=== PATIENT | female | born 1970 | race Caucasian/White ===

== ENCOUNTER → 2020-08-26 15:57 | Outpatient (CLI) | payer BC, SELFPAY ==
--- NOTE | ~2020-08-26 | MM_ITS ---
EXAMINATION: MM screening [facility] BI w graciela HISTORY: Screening mammogram TECHNIQUE: Craniocaudal and mediolateral oblique 3-D tomosynthesis images were obtained and synthetic 2-D images were generated. CAD analysis was submitted and interpreted. COMPARISON: 05/23/2019, 04/19/2018, 12/22/2016 BREAST PARENCHYMAL COMPOSITION: The breasts are almost entirely fatty. FINDINGS: There is no evidence of suspicious mass, calcification, or architectural distortion to sugg est malignancy in either breast. There has been no suspicious interval change. IMPRESSION: 1. No mammographic evidence of malignancy. 2. Recommend routine screening mammography in one year. BI-RADS Category 1: Negative Reviewed, dictated and finalized at location A. LE CUTTER
== END ==
PROVIDERS: PCP Family Medicine; Visit Provider Obstetrics & Gynecology
DX: Z12.31 Encounter for screening mammogram for malignant neoplasm of breast (principal)
CPT/HCPCS: 77063; 77067

== ENCOUNTER → 2020-09-02 18:04 | Outpatient (CLI) | payer BC, SELFPAY ==
--- NOTE | ~2020-09-02 | DEXA_ITS ---
Bone Density Report Name: Sarah Mehta Age: 49 Sex: Female Ethnicity: White Date of : 1970 Indication: postmenopausal; screening for osteoporosis; height loss; asthma or emphysema; rheumatoid arthritis; Referring Provider: YOHAN HARTLEY Study: Bone densitometry was performed. Exam Date: September 02, 2020 Accession number: [id number] Bone Density: Region BMD T-score Z-score Classification AP Spine (L1, L2, L3) 1.136 1.1 1.8 Normal Femoral Neck (Left) 0.977 1.2 1.9 Normal Total Hip (Left) 1.091 1.2 1.7 Normal Femoral Neck (Right) 0.847 0.0 0.8 Normal Total Hip (Right) 1.038 0.8 1.3 Normal Total Hip Mean 1.065 1.0 1.5 Normal World Health Organization criteria for BMD impression classify patients as: Normal (T-score at or above -1.0), Osteopenia (T-score between -1.0 and -2.5), or Osteoporosis (T-score at or below -2.5). 10-year Fracture Risk: FRAX not reported because: All T-scores for Spine Total, Hip Total, Femoral Neck at or above -1.0 Clinical Information Provided by Patient: Has rheumatoid arthritis Has used the following medications: Vitamin D, Calcium Has the following medical conditions: Asthma or Emphysema Patient maximum height was 66.5 Menopause Age: 48 No regular weight bearing exercise Drinks caffeinated beverages Onset of menses at age 9 Number of children 1 Impression: The patient has normal bone mass. Discussion: BONE DENSITY IS ABOVE THE MINIMUM DESIRABLE LEVEL AT ALL SKELETAL SITES TESTED. This patient?s bone mineral density is above the minimum desirable level (T-score -1.0 or better) at all sites measured. The patient should follow a healthful lifestyle (good nutrition with adequate calcium and vitamin D, and appropriate weight-bearing exercise). Follow-Up: Consider repeating this study in 5 years or sooner if there is some new clinical indication. Reported by: CLAU on 09/02/2020 7:21:00 PM. Reviewed, dictated and finalized at location [facility]
== END ==
PROVIDERS: Visit Provider Obstetrics & Gynecology
DX: Z78.0 Asymptomatic menopausal state (principal)
CPT/HCPCS: 77080

== ENCOUNTER → 2021-12-01 15:25 | Outpatient (CLI) | payer BC, SELFPAY ==
--- NOTE | ~2021-12-01 | MM_ITS ---
EXAMINATION: MM screening luzma BI w graciela HISTORY: Screening mammogram TECHNIQUE: Craniocaudal and mediolateral oblique 3-D tomosynthesis images were obtained and synthetic 2-D images were generated. CAD analysis was submitted and interpreted. COMPARISON: August 26, 2020, May 23, 2019, April 19, 2018 bilateral screening mammogram exam inations BREAST PARENCHYMAL COMPOSITION: There are scattered areas of fibroglandular density. FINDINGS: There is no evidence of suspicious mass, calcification, or architectural distortion to sugg est malignancy in either breast. There has been no suspicious interval change. IMPRESSION: 1. No mammographic evidence of malignancy. 2. Recommend routine screening mammography in one year. BI-RADS Category 1: Negative Reviewed, dictated and finalized at location A.
== END ==
PROVIDERS: PCP Family Medicine; Visit Provider Obstetrics & Gynecology
DX: Z12.31 Encounter for screening mammogram for malignant neoplasm of breast (principal)
CPT/HCPCS: 77063; 77067

== ENCOUNTER 2022-07-05 14:13 | Emergency (ER) | payer BC, SELFPAY ==
[2022-07-05 14:19] VITALS: BP 151/93; PULSE 50; RESP 15; TEMP 36.5; O2SAT 100
--- NOTE | 2022-07-05 14:19 | ECG_ITS ---
Measurements Intervals [place] Rate: 43 P: 53 NV: 147 QRS: 25 QRSD: 152 T: 27 QT: 500 QTc: 427 Interpretive Statements SINUS BRADYCARDIA POSSIBLE LEFT ATRIAL ENLARGEMENT [-0.1mV P WAVE IN V1/V2] RIGHT BUNDLE BRANCH BLOCK [120+ ms QRS DURATION, UPRIGHT V1, 40+ ms S IN I/aVL/V4/V5/V6] NO PREVIOUS ECG AVAILABLE FOR COMPARISON Electronically Signed On 07-05-2022 15:06:50 [employer] by Elizabeth Enriquez M.D.
--- NOTE | 2022-07-05 16:05 | ED.GENADULT ---
HPI - General Adult General Chief complaint: Recheck/Abnormal Lab/Rx Stated complaint: HTN Time Seen by Provider: 07/05/22 15:42 History of Present Illness HPI narrative: This is a 51-year-old female with history of hypertension presenting ED for elevated blood pressure. Patient has been adjusting her blood pressure medications with her primary care physician over the last several weeks. She is on Bystolic 10 mg once daily and lisinopril 20 mg once daily. She said that she felt funny although she could not say what exactly she was feeling and took her blood pressure which was elevated over 200. She called her primary care physician who had her come into the the office and her blood pressure was found to be elevated over 200. She then came to the emergency department for evaluation. Here her blood pressure is 151/93. She takes her blood pressure medications at night before she goes to bed. Patient is asymptomatic. She denies chest pain, difficulty breathing, headache, numbness tingling weakness to any extremity, lower extremity edema, fatigue weakness or any other complaints this time. Related Data Home Medications Medication Instructions Recorded Confirmed azelastine 205.5 mcg (0.15 %) 2 spray intranasal DAILY 05/28/19 07/05/22 nasal spray leflunomide 10 mg tablet 10 mg PO DAILY 05/28/19 07/05/22 modafinil 200 mg tablet (Provigil) 400 mg PO QAM 05/28/19 07/05/22 adalimumab 40 mg/0.4 mL See Rx Instructions subcut .COMPLEX 07/14/20 07/05/22 subcutaneous pen kit (Humira(CF) Pen) omega-3 fatty acids 1,000 mg 1,000 mg PO DAILY 07/14/20 07/05/22 capsule (Fish Oil Concentrate) aspirin 81 mg tablet,delayed 81 mg PO DAILY 10/05/20 07/05/22 release multivitamin 1 tablet PO DAILY 10/05/20 07/05/22 cyanocobalamin (vitamin B-12) 1,000 mcg PO DAILY 06/13/22 07/05/22 1,000 mcg tablet ferrous sulfate 324 mg (65 mg 324 mg PO . every other day 06/13/22 07/05/22 iron) tablet,delayed release Allergies Allergy/AdvReac Type Severity Reaction Status Date / Time Sulfa (Sulfonamide Allergy Unknown Unknown Verified 07/05/22 13:54 Antibiotics) sulfanilamide Allergy Unknown Unknown Verified 07/05/22 13:54 Review of Systems Review of Systems: CONSTITUTIONAL: Denies night sweats. EYES: No eye pain ENT: Denies rhinorrhea CARDIOVASCULAR: Denies palpitations RESPIRATORY: Denies hemoptysis GASTROINTESTINAL: Denies hematemesis GENITOURINARY: Denies hematuria. SKIN: Denies rash MUSCULOSKELETAL: Denies myalgia. NEUROLOGIC: Denies weakness. PSYCHIATRIC: Denies delusions PMFSH Past Medical History Medical History Abnormal ankle brachial index (DAVID) (~10/23/21) lifeline screening on 10/23/2021 with DAVID normal in the left at 1.4 and slightly above average on the right at 1.45. Recheck in 1 year. Abnormal fasting glucose glucose 114 with hemoglobin A1c 6.0 on 06/12/2021. blood sugar 96 with hemoglobin A1c 5.8 on 06/08/2022. Chronic low back pain with right-sided sciatica Chronic nonallergic rhinitis COVID-19 02/06/22 High cholesterol Hypertension Hypertensive urgency Lipoma of right upper extremity Morbid obesity with BMI of 45.0-49.9, adult Obstructive sleep apnea on CPAP Plantar fascial fibromatosis of left foot (~01/2022) 4 mm fibrous nodule left mid foot over base of 2nd metatarsal Psoriasis Rheumatoid arthritis Vitamin B12 deficiency (06/08/22) level low at 349 with goal greater than 400 on 06/08/2022 with hemoglobin 12.8. Surgical History Surgical History H/O prior ablation treatment NOVASURE History of carpal tunnel surgery of left wrist History of carpal tunnel surgery of right wrist History of section Hx of LASIK Tubal ligation status Family History Family History Grandparent Hypertension Family history of cardiovascular disease
[2022-07-05 16:23] VITALS: BP 260/89; PULSE 48; RESP 18; O2SAT 99
[2022-07-05 16:31] VITALS: BP 251/84; PULSE 42; RESP 14; O2SAT 100
== END 2022-07-05 16:33 | disposition home or self-care (01) ==
PROVIDERS: Emergency Provider Emergency Medicine; PCP Family Medicine
DX: I10 Essential (primary) hypertension (principal); M06.9 Rheumatoid arthritis, unspecified; E53.8 Deficiency of other specified B group vitamins; E66.01 Morbid (severe) obesity due to excess calories; Z68.42 Body mass index [BMI] 45.0-49.9, adult; G47.33 Obstructive sleep apnea (adult) (pediatric); Z86.16 Personal history of COVID-19; Z79.82 Long term (current) use of aspirin; R00.1 Bradycardia, unspecified; R94.31 Abnormal electrocardiogram [ECG] [EKG]; I45.10 Unspecified right bundle-branch block
CPT/HCPCS: 93005; 99283

== ENCOUNTER 2023-03-21 01:03 | Day surgery (SDC) | payer BC, SELFPAY ==
[2023-03-07 13:21] VITALS: BMI 46.5
[2023-03-21 06:43] VITALS: BP 157/63; PULSE 50; RESP 18; TEMP 36.2; O2SAT 100
[2023-03-21] MEDS: LACTATED RINGERS 1,000 ML 150 ML IV CONT (06:45)
--- NOTE | 2023-03-21 07:13 | WPDANESEPPF ---
Anes - Initial Pre Proc Eval Procedure: Operation Date: 03/21/23 08:00 Proposed Procedures p Screening Colonoscopy - Timi Ramirez MD Date/Time: 03/21/23 07:13 Surgeon: Timi Ramirez MD Pre Op Diagnosis: neoplasm screening, family hx colon polyps Patient Data Age: 52 Gender: F Height: 1.65 m Weight: 125.4 kg Last Vital Signs Temp 36.2 C L 03/21/23 06:43 Pulse 50 L 03/21/23 06:43 Resp 18 03/21/23 06:43 BP 157/63 H 03/21/23 06:43 Pulse Ox 100 03/21/23 06:43 O2 Del Method Room Air 03/21/23 06:43 Allergies Allergy/AdvReac Type Severity Reaction Status Date / Time Sulfa (Sulfonamide Allergy Intermediate Rash Verified 03/21/23 06:40 Antibiotics) Home Medications Medication Instructions Recorded Confirmed Type azelastine 205.5 mcg (0.15 %) 2 spray intranasal DAILY 05/28/19 03/07/23 History nasal spray cyclosporine 0.05 % eye drops 1 drop ophthalmic (eye) Q12H #5.5 05/28/19 03/07/23 Rx (Restasis MultiDose) mL leflunomide 10 mg tablet 10 mg PO DAILY 05/28/19 03/07/23 History modafinil 200 mg tablet (Provigil) 400 mg PO QAM 05/28/19 03/07/23 History adalimumab 40 mg/0.4 mL See Rx Instructions subcut .COMPLEX 07/14/20 03/07/23 History subcutaneous pen kit (Humira(CF) Pen) omega-3 fatty acids 1,000 mg 1,000 mg PO DAILY 07/14/20 03/07/23 History capsule (Fish Oil Concentrate) aspirin 81 mg tablet,delayed 81 mg PO DAILY 10/05/20 03/07/23 History release multivitamin 1 tablet PO DAILY 10/05/20 03/07/23 History atorvastatin 40 mg tablet 40 mg PO DAILY #90 tabs 06/06/22 03/07/23 Rx cyanocobalamin (vitamin B-12) 1,000 mcg PO DAILY 06/13/22 03/07/23 History 1,000 mcg tablet ropinirole 5 mg tablet 5 mg PO QHS #90 tabs 06/13/22 03/07/23 Rx duloxetine 60 mg capsule,delayed 60 mg PO DAILY #90 caps 07/06/22 03/07/23 Rx release hydrochlorothiazide 12.5 mg tablet 12.5 mg PO QAM #90 tabs 07/31/22 03/07/23 Rx lisinopril 40 mg tablet 40 mg PO . q.h.s. #90 tabs 07/31/22 03/07/23 Rx nebivolol 5 mg tablet (Bystolic) 5 mg PO . q.h.s. #90 tabs 07/31/22 03/07/23 Rx amlodipine 5 mg tablet 5 mg PO . q.a.m. #30 tabs 10/15/22 03/07/23 Rx tramadol 50 mg tablet 50 mg PO Q6H PRN pain #120 tabs 02/11/23 03/21/23 Rx montelukast 10 mg tablet 10 mg PO QHS #90 tabs 02/18/23 03/07/23 Rx acetaminophen 650 mg tablet 650 mg PO Q6H PRN Pain 03/21/23 03/21/23 History Patient hx anesthesia problems: none Family hx anesthesia problems: none Results Review: All pre-operative results and documents have been reviewed as part of the pre-operative evaluation. [facility] Past Medical History Medical History Abnormal ankle brachial index (DAVID) (~10/23/21) lifeline screening on 10/23/2021 with DAVID normal in the left at 1.4 and slightly above average on the right at 1.45. Recheck in 1 year. Abnormal fasting glucose glucose 114 with hemoglobin A1c 6.0 on 06/12/2021. blood sugar 96 with hemoglobin A1c 5.8 on 06/08/2022. Body mass index (BMI) of 50-59.9 in adult (02/17/19) Chronic low back pain with right-sided sciatica Chronic nonallergic rhinitis Colon cancer screening COVID-19 02/06/22 High cholesterol Hypertension Hypertensive urgency Echocardiogram 10/04/2022 with mild LVH with ejection fraction 70%. 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 Surgical History Surgical History H/O prior ablation treatment NOVASURE History of carpal tunnel davidson
--- NOTE | 2023-03-21 07:30 | PM.HPGS ---
History of Present Illness History of Present Illness Consent: Risks, benefits, and alternatives have been discussed and questions answered. Patient agrees to proceed with procedure. Chief complaint: neoplasm screening, family hx colon polyps Narrative: Sarah Mehta is a 52 year old female Presents for screening colonoscopy. Patient reports her current weight appetite and bowel movements are normal. She denies abdominal pain. She has had no bleeding. Family history is significant that her mother has had colon polyps. Patient did have previous colonoscopy 2010 that was unremarkable. Review of Systems Review of Systems: Review of systems noncontributory. [facility] Past Medical History Medical History Abnormal ankle brachial index (DAVID) (~10/23/21) lifeline screening on 10/23/2021 with DAVID normal in the left at 1.4 and slightly above average on the right at 1.45. Recheck in 1 year. Abnormal fasting glucose glucose 114 with hemoglobin A1c 6.0 on 06/12/2021. blood sugar 96 with hemoglobin A1c 5.8 on 06/08/2022. Body mass index (BMI) of 50-59.9 in adult (02/17/19) Chronic low back pain with right-sided sciatica Chronic nonallergic rhinitis Colon cancer screening COVID-19 02/06/22 High cholesterol Hypertension Hypertensive urgency Echocardiogram 10/04/2022 with mild LVH with ejection fraction 70%. 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 Surgical History Surgical History H/O prior ablation treatment NOVASURE History of carpal tunnel surgery of left wrist History of carpal tunnel surgery of right wrist History of section Hx of LASIK Tubal ligation status Family History Family History Grandparent Hypertension Family history of cardiovascular disease Family history of malignant neoplasm of cervix Family history of lung cancer Diabetes mellitus Father Hypertension Family history of cardiovascular disease Family history of lung cancer, Onset Age: 60 Diabetes mellitus Mother Family history of chronic obstructive pulmonary disease Social History Social History Smoking status: Never smoker Second hand tobacco smoke exposure: No Alcohol intake: never Substance use: never Substance use type: does not use Lack of Transportation: No Lack of Food: Never True Current Housing: I Have Housing Concerned About Future Housing: No Difficulty Paying Gas/Electric Bills: No Difficulty Paying for Meds: No Currently Unemployed: No Education: Bachelor's Degree Difficulty w/ Childcare or Family Care: No Living arrangements: with family Spiritual care concerns: No Meds Home Medications and Allergies Home Medications Medication Instructions Recorded Confirmed Type azelastine 205.5 mcg (0.15 %) 2 spray intranasal DAILY 05/28/19 03/07/23 History nasal spray cyclosporine 0.05 % eye drops 1 drop ophthalmic (eye) Q12H #5.5 05/28/19 03/07/23 Rx (Restasis MultiDose) mL leflunomide 10 mg tablet 10 mg PO DAILY 05/28/19 03/07/23 History modafinil 200 mg tablet (Provigil) 400 mg PO QAM 05/28/19 03/07/23 History adalimumab 40 mg/0.4 mL See Rx Instructions subcut .COMPLEX 07/14/20 03/07/23 History subcutaneous pen kit (Humira(CF) Pen) omega-3 fatty acids 1,000 mg 1,000 mg PO DAILY 07/14/20 03/07/23 History
[2023-03-21 08:16] VITALS: BP 139/83; PULSE 52; RESP 18; O2SAT 96
[2023-03-21 08:26] VITALS: BP 147/67; PULSE 48; RESP 15; O2SAT 96
[2023-03-21 08:36] VITALS: BP 149/78; PULSE 49; RESP 17; O2SAT 96
== END 2023-03-21 08:42 | disposition home or self-care (01) ==
PROVIDERS: PCP Family Medicine; Visit Provider Internal Medicine Gastroenterology
PROC: 0DJD8ZZ Inspection of Lower Intestinal Tract, Via Natural or Artificial Opening Endoscopic (ICD-10-PCS; CPT 45378; principal; 2023-03-21 08:00)
DX: Z12.11 Encounter for screening for malignant neoplasm of colon (principal); M06.9 Rheumatoid arthritis, unspecified; I10 Essential (primary) hypertension; G47.33 Obstructive sleep apnea (adult) (pediatric); J31.0 Chronic rhinitis; E78.00 Pure hypercholesterolemia, unspecified; E53.8 Deficiency of other specified B group vitamins; Z79.82 Long term (current) use of aspirin; Z79.891 Long term (current) use of opiate analgesic; E66.01 Morbid (severe) obesity due to excess calories; Z68.42 Body mass index [BMI] 45.0-49.9, adult; Z83.71 Family history of colonic polyps; Z82.3 Family history of stroke; Z79.620 Long term (current) use of immunosuppressive biologic
CPT/HCPCS: 45378; J2704; J7120

== ENCOUNTER → 2023-05-24 07:06 | Outpatient (CLI) | payer BC, SELFPAY ==
--- NOTE | ~2023-05-24 | MM_ITS ---
EXAMINATION: MM screening luzma BI w graciela HISTORY: Screening mammogram TECHNIQUE: Craniocaudal and mediolateral oblique 3-D tomosynthesis images were obtained and synthetic 2-D images were generated. CAD analysis was submitted and interpreted. COMPARISON: 12/01/2022, 08/26/2020, 05/23/2019 bilateral screening mammogram examinations BREAST PARENCHYMAL COMPOSITION: The breasts are almost entirely fatty. FINDINGS: There is no evidence of suspicious mass, calcification, or architectural distortion to sugg est malignancy in either breast. There has been no suspicious interval change. IMPRESSION: 1. No mammographic evidence of malignancy. 2. Recommend routine screening mammography in one year. BI-RADS Category 1: Negative Reviewed, dictated and finalized at location B. [facility] [employer]
== END ==
PROVIDERS: PCP Obstetrics & Gynecology; Visit Provider Obstetrics & Gynecology
DX: Z12.31 Encounter for screening mammogram for malignant neoplasm of breast (principal)
CPT/HCPCS: 77063; 77067

== ENCOUNTER 2023-07-30 15:30 | Outpatient (RCR) | payer BC, SELFPAY ==
--- NOTE | 2023-07-03 16:43 | OPREHPOC ---
Outpatient Therapy Plan of Care This is a Multidisciplinary Plan of Care that may contain components documented by all disciplines (PT, OT, and ST.) PT Problem 1 PT Problem #1 Knowledge Deficit PT Goal 1 Goal Pt to be IND with issued HEP Target Visit 8 PT Problem 2 PT Problem #2 Pain PT Goal 1 Goal Pt to report pain no greater than 3/10 in the last week. Target Visit 8 PT Goal 2 Goal Pt to report 75% improvement in overall symptoms Target Visit 8 PT Problem 3 PT Problem #3 Impaired Range of Motion PT Goal 1 Goal Pt to improve L hip passive int rot to 0 deg Target Visit 8 PT Goal 2 Goal Pt to improve L hip passive abduction to 45 deg Target Visit 8 PT Problem 4 PT Problem #4 Impaired Gait PT Goal 1 Goal Pt to ambulate with an equal strike length Target Visit 8
--- NOTE | 2023-07-03 16:43 | PTOPEVAL1 ---
Assessment and note entered by Patricia Cottrell, PT, DPT Evaluation Information Assessment Status Evaluation Diagnosis low back pain Onset 3 months Subjective Information Pt states she has L sided low back pain, she states she is not sure if it is her sciatic nerve or her hip but her L side just feels weaker. She reports pain for 3 months. Pt reports currently her pain is worse in standing, she reports pain upon standing after being in a prolonged position. She reports her biggest limitation is the weakness and stiffness that she feels now. Pt has a desk job. Reported Pain Level Pain Score 0: Self Report Assessment PT Clinical Summary Sarah presents to therapy today for her initial evaluation with a diagnosis of lumbago with sciatic pain. Today she demonstrates decreased active and passive L hip ROM compared to the R side as well as compared to normal motions, as well as decreased hip strength anne. She ambulates with LLE ext rot and with an antalgic pattern favoring the L side. Skilled therapy services are indicated to address the deficits noted above, to manage pain, and to improve functional mobility. Plan of Care Interventions Electrical Stimulation,Gait Training,Hot Pack/Cold Pack,Manual Therapy,Neuro Re-education,Patient/ Caregiver Educati,Therapeutic Activities, Therapeutic Exercise PT Services Indicated Yes Treatment Frequency and 2x/wk for 8 visits Duration These treatments will address the objective and functional deficits as defined above. The patient will be advanced safely and appropriately in order for the patient to progress towards his/her prior level of function. Additional exercises will be introduced and as well as a comprehensive home exercise program upon discharge, if needed, ?to ensure carryover of functional gains achieved in the clinic. This treatment plan has been reviewed and agreement upon by the patient.
--- NOTE | 2023-07-30 16:28 | PTOPDC ---
Assessment and note entered by Patricia Cottrell, PT, DPT Evaluation Information Assessment Status discharge Diagnosis low back pain Onset 3 months Subjective Information Pt states her hip is improving, she reports improved ROM. Pt reports 50-60% improvement in overall symptoms. She states she still gets numbness and tingling when sleeping at night. Reported Pain Level Pain Score 2: Self Report Assessment PT Clinical Summary Sarah presents to therapy today for her progress report following 9 visits of skilled therapy. Today she demonstrates improved L hip ROM compared to initial visit but still decreased from normal and from her R hip. She demonstrates improved gait pattern that is equal and no longer antalgic. Pt reports 50% improvement to baseline function. She would like to continue her HEP and will follow up with her referring provider if her pain worsens.
== END 2023-07-31 10:24 | disposition home or self-care (01) ==
LOC: ANHGOSHPT 15:30
PROVIDERS: PCP Obstetrics & Gynecology; Visit Provider Nurse Practitioner Family
DX: M54.41 Lumbago with sciatica, right side (principal); G89.29 Other chronic pain
CPT/HCPCS: 97110; 97140; 97161; 97530

== ENCOUNTER 2024-06-01 07:17 | Outpatient (CLI) | payer BC, SELFPAY ==
--- NOTE | ~2024-06-01 | MM_ITS ---
EXAMINATION: MM screening luzma BI w graciela HISTORY: Screening TECHNIQUE: Craniocaudal and mediolateral oblique 3-D tomosynthesis images were obtained and synthetic 2-D images were generated. CAD analysis was submitted and interpreted. COMPARISON: Comparison to multiple prior studies sequentially, with oldest reviewed study dated 12/22. BREAST PARENCHYMAL COMPOSITION: Not Dense: The breasts are almost entirely fatty. FINDINGS: There is no evidence of suspicious mass, calcification, or architectural distortion to sugg est malignancy in either breast. There has been no suspicious interval change. IMPRESSION: 1. No mammographic evidence of malignancy. 2. Recommend routine screening mammography in one year. BI-RADS Category 1: Negative Reviewed, dictated and finalized at location [] [employer]
== END 2024-06-01 07:18 | disposition home or self-care (01) ==
LOC: MICIMG 07:18
PROVIDERS: PCP Family Medicine; Visit Provider Obstetrics & Gynecology
DX: Z12.31 Encounter for screening mammogram for malignant neoplasm of breast (principal)
CPT/HCPCS: 77063; 77067

== ENCOUNTER → 2024-09-03 15:23 | Outpatient (CLI) | payer BC, SELFPAY | PROVIDERS: PCP Family Medicine; Visit Provider Family Medicine | DX: M54.42 Lumbago with sciatica, left side (principal); M25.552 Pain in left hip; G89.29 Other chronic pain; M54.2 Cervicalgia | CPT/HCPCS: 72050; 72110; 73502 ==